=== PATIENT | female | born 1985 | race Caucasian/White ===

== ENCOUNTER 2022-09-18 10:07 | Emergency (ER) | payer MEDICAID ==
[2022-09-18] MEDS ORDERED: Cetirizine 10 MG Tab PO ONE (11:14)
== END 2022-09-18 11:29 | disposition home or self-care (01) ==
LOC: KA.ED 10:07
DX: J30.2 Other seasonal allergic rhinitis (principal)
CPT/HCPCS: 99283; A9270-GY

== ENCOUNTER 2023-08-15 15:21 | Emergency (ER) | payer MEDICAID ==
[2023-08-15 16:06] LABS: BASOPHILS ABSOLUTE AUTO 0.05 10^3/uL (0.00-0.10); BASOPHILS PERCENT AUTO 0.6 % (0.0-1.0); EOSINOPHILS ABSOLUTE AUTO 0.49 10^3/uL (0.10-0.30); EOSINOPHILS PERCENT AUTO 6.1 % (1.0-3.0); HEMATOCRIT 45.9 % (37.0-47.0); IMMATURE GRAN ABSOLUTE AUTO 0.02 10^3/uL (0.00-0.50); IMMATURE GRAN PERCENT AUTO 0.3 % (0.0-5.0); LYMPHOCYTES ABSOLUTE AUTO 2.36 10^3/uL (1.00-4.00); LYMPHOCYTES PERCENT AUTO 29.6 % (20.0-40.0); MEAN CORPUSCULAR HGB CONC 32.7 g/dL (32.0-36.0); MEAN CORPUSCULAR VOLUME 88.8 fL (82.0-92.0); MEAN PLATELET VOLUME 9.5 fL (7.4-10.4); MONOCYTES ABSOLUTE AUTO 0.64 10^3/uL (0.10-0.80); NEUTROPHILS ABSOLUTE AUTO 4.41 10^3/uL (2.50-7.00); NEUTROPHILS PERCENT AUTO 55.4 % (50.0-70.0); PLATELET COUNT,PLT 452 10^3/uL (150-400); RED BLOOD CELL COUNT 5.17 10^6/uL (3.80-5.50); WHITE BLOOD CELL COUNT,WBC 7.97 10^3/uL (5.00-10.00)
[2023-08-15 16:15] LABS: APPEARANCE,URINE CLEAR (CLEAR); BILIRUBIN,URINE NEGATIVE (NEGATIVE); COLOR,URINE LIGHT YELLOW (YELLOW); GLUCOSE,URINE NEGATIVE (NEGATIVE); KETONES,URINE NEGATIVE (NEGATIVE); LEUKOCYTE ESTERASE,URINE NEGATIVE (NEGATIVE); NITRITE,URINE NEGATIVE (NEGATIVE); OCCULT BLOOD,URINE NEGATIVE (NEGATIVE); PROTEIN,URINE NEGATIVE (NEGATIVE); UROBILINOGEN,URINE 0.2 E.U./dL (0.2-1.0)
[2023-08-15 16:21] LABS: ALBUMIN 4.05 g/dL (3.40-5.00); ANION GAP 8.4 mmol/L (5-15); BILIRUBIN TOTAL 0.3 mg/dL (0.2-1.0); CALCIUM 8.8 mg/dL (8.7-10.3); CARBON DIOXIDE,CO2 28.5 mmol/L (21.0-32.0); CREATININE 0.79 mg/dL (0.51-1.17); EST CRCL DRUG DOSING (CG) 82.56 mL/min; POTASSIUM,K 3.9 mmol/L (3.5-5.1); PROTEIN TOTAL,TP 7.8 g/dL (6.4-8.2)
[2023-08-15 16:22] LABS: RBC,URINE 0-5 /HPF (0-5); WBC,URINE 0-5 /HPF (0-5)
[2023-08-15 16:23] LABS: AMPHETAMINES SCREEN, URINE NEGATIVE (NEGATIVE); BACTERIA,URINE OCCASIONAL /HPF (NONE TO FEW); BARBITURATE SCREEN,URINE NEGATIVE (NEGATIVE); BENZODIAZEPINES SCREEN,URINE NEGATIVE (NEGATIVE); COCAINE METABOLITES,URINE NEGATIVE (NEGATIVE); EPITHELIAL CELLS,URINE OCCASIONAL /LPF; METHADONE SCREEN, URINE NEGATIVE (NEGATIVE); METHAMPHETAMINES SCREEN, URINE NEGATIVE (NEGATIVE); OXYCODONE SCREEN,URINE NEGATIVE (NEGATIVE); PCP SCREEN,URINE NEGATIVE (NEGATIVE); PROPOXYPHENE SCREEN,URINE NEGATIVE (NEGATIVE); TCA SCREEN,URINE NEGATIVE (NEGATIVE); THC SCREEN,URINE 50 NG/ML NEGATIVE (NEGATIVE)
== END 2023-08-15 17:44 ==
LOC: KA.ED 15:21
DX: R45.851 Suicidal ideations (principal); Z88.0 Allergy status to penicillin; Z88.1 Allergy status to other antibiotic agents
CPT/HCPCS: 36415; 80053; 80305-QW; 80307; 81001; 85025; 99284; 99285